=== PATIENT | female | born 1995 | race African-American/Black ===

== ENCOUNTER 2016-11-04 16:55 | Emergency (ER) | payer OTHER ==
[~2016-11-04] VITALS: Ht 160 cm; Wt 118.0 kg
[~2016-11-04 16:55] MED LIST: METR-1 PO
[2016-11-04 16:57] VITALS: BP 146/85; PULSE 92; RESP 20; TEMP 98.8; O2SAT 100
--- NOTE | 2016-11-04 17:49 | PD ---
Physical Exam Time Seen by Provider: 17:48 Narrative 21 y/o female with rash on feet as well as vaginal irritation intermittently for the past year. vss Seen at triage desk. Awaiting bed placement. Data Data Last Documented VS Vital Signs Date Time Temp Pulse Resp B/P Pulse Ox O2 Delivery O2 Flow Rate FiO2 11/04/16 16:57 98.8 92 20 146/85 100 Room Air [facility] Medical Record Reviewed: Yes Supervised Visit with LUIS: Rober Lockett November 04, 2016 17:49
[2016-11-04 20:13] VITALS: BP 144/79; PULSE 86; RESP 18; O2SAT 99
--- NOTE | 2016-11-04 20:23 | PD ---
HPI Chief Complaint: Skin Problem Time Seen by Provider: 20:20 Travel History International Travel<30 days: No Contact w/Intl Traveler<30days: No Traveled to known affect area: No History of Present Illness HPI Patient is a 21-year-old female presenting to emergency for evaluation of a rash to her feet as well as external perineal irritation. Patient states that she's had a rash on her feet for the last year, she reports it as itchy. It is relieved with coconut oil worsened with regular lotion soaps. Primary doctor gave her an lotion to put on it which helps but does not completely resolve the issue. Patient also states that the external irritation has been on and off for a while, she reports that her doctor gives her medication which helps it initially but then it comes back. She denies any dysuria, no unprotected sex, no vaginal discharge or odor. She reports that the outer labia are irritated feeling, reporting it is burning at times. PFSH Past Medical History ADHD: Yes (ADHD) Asthma: Yes Cancer: No Cardiovascular Problems: No Diabetes: No Diminished Hearing: No Psychiatric: Yes (MOOD D/O AND PTSD) Respiratory: Yes (ASTHMA) Migraines: Yes Seizures: Yes ( INFANT) Thyroid Disease: No Ulcer: No ?: Not : 0 Para: 0 Miscarriage: 0 : 0 Past Surgical History Surgical History: No Previous Surgery Other Surgery: No Social History Alcohol Use: No Tobacco Use: No Substance Use: No Allergies-Medications (Allergen,Severity, Reaction): Uncoded Allergies: MILDEW (Allergy, Unknown, 11/09/13) MOLD (Allergy, Unknown, 11/09/13) PET DANDER (Allergy, Unknown, 11/09/13) POLLEN (Allergy, Unknown, 11/09/13) Reported Meds & Prescriptions Reported Meds & Active Scripts Active Review of Systems Except as stated in HPI: all other systems reviewed are Neg Gastrointestinal: No: Abdominal Pain Genitourinary: No: Dysuria, Discharge, Vaginal Bleeding Skin: Positive Rash, Positive Other Physical Exam Narrative GENERAL: Overweight, well-developed, alert female. Resting comfortably in no acute distress. SKIN: Warm and dry. Well demarcated scaling patches to bilateral feet on the dorsal aspect over the toes extending just distal to the mid foot. No exudates noted. HEAD: Normocephalic. EYES: No scleral icterus. No injection or drainage. NECK: Supple, trachea midline. No JVD or lymphadenopathy. CARDIOVASCULAR: Regular rate and rhythm without murmurs, gallops, or rubs. RESPIRATORY: Breath sounds equal bilaterally. No accessory muscle use. GASTROINTESTINAL: Abdomen soft, non-tender, nondistended. MUSCULOSKELETAL: No cyanosis, or edema. BACK: Nontender without obvious deformity. No CVA tenderness. Data Data Last Documented VS Vital Signs Date Time Temp Pulse Resp B/P Pulse Ox O2 Delivery O2 Flow Rate FiO2 11/04/16 20:13 86 18 144/79 99 Room Air 11/04/16 16:57 98.8 [facility] Medical Decision Making Medical Screen Exam Complete: Yes Emergency Medical Condition: Yes Interpretation(s) Vital Signs Date Time Temp Pulse Resp B/P Pulse Ox O2 Delivery O2 Flow Rate FiO2 11/04/16 20:13 86 18 144/79 99 Room Air 11/04/16 16:57 98.8 92 20 146/85 100 Room Air Differential Diagnosis Eczema versus tinea versus vaginitis versus dermatitis versus other Narrative Course Patient is a 21-year-old female presenting to emergency department for evaluation of a rash to her feet and irritation to her peritoneal area. Patient denies any abdominal pain, vaginal discharge or bleeding. She states this problem has been on and off for a year. Upon physical examination skin is irritated appearing, mildly excoriated on the inner upper thighs as well as external labia majora. Patient was encouraged to avoid shaving those areas, she was advised that she can use a thin coat of topical steroid for 3-5 days only on the outer labia and inner thighs. She was advised to not put any steroid cream on her labia minora or in the vaginal area. She is advised to follow-up with her design inserter. She was advised that she may need to follow- up with a cloth inspector for skin scrapings/biopsies. Patient verbalized understanding of these instructions. Patient is stable for discharge. Diagnosis Primary Impression: Dermatitis Additional Impression: Eczema Qualified Code: L30.9 - Eczema, unspecified type Referrals: [facility] [employer] Patient Instructions: Dermatitis (ED), Eczema (ED), General Instructions Additional Instructions: Follow-up with your design inserter Follow-up with a cloth inspector Only apply a thin light code of topical steroid to the irritated area on the inner upper thighs and outer labia, only use for 3-5 days maximum. Return to emergency department for any new or worsening symptoms Med/Other Pt SpecificInfo: Prescription(s) given Scripts Ketoconazole Topical 2% Cream1 Applic TOPICAL BID #60 GM Ref 0 APPLY TO FEET BID. Prov:Ainsley Brooks 11/04/16 Triamcinolone Topical 0.025% Cream1 Applic TOPICAL BID #30 GM Ref 0 Apply a very light coat to INNER THIGHS, do not for use more than 3-5 days Prov:Ainsley Brooks 11/04/16 Disposition: 01 DISCHARGE HOME Condition: Stable Ainsley Brooks November 04, 2016 20:23
[2016-11-04] MEDS ORDERED: KETO2CRE TOPICAL (20:38)
[2016-11-04] MEDS ORDERED: TRIA.025%T TOPICAL (20:38)
== END 2016-11-04 21:30 | disposition home or self-care (01) ==
LOC: NEPD 16:55
DX: L30.9 Dermatitis, unspecified (principal); L29.3 Anogenital pruritus, unspecified
CPT/HCPCS: 99283